=== PATIENT | female | born 1995 | race Caucasian/White ===

== ENCOUNTER 2017-08-03 01:20 | Observation (INO) | payer MEDICAID ==
[~2017-08-03] VITALS: Ht 162.6 cm; Wt 102.5 kg
[2017-08-03 02:08] VITALS: BP 121/69
[2017-08-03] MEDS ORDERED: ONDA4 PO (02:14)
[2017-08-03] MEDS ORDERED: ASPI81TA39 PO (02:14)
[2017-08-03] MEDS ORDERED: RINGERS SOLUTION,LACTATED 1,000 ML IV SCH (03:15)
== END 2017-08-03 06:40 | disposition home or self-care (01) ==
LOC: 4S 01:20
PROVIDERS: ADMIT Obstetrics & Gynecology; ATTEND Obstetrics & Gynecology
DX: O26.852 Spotting complicating pregnancy, second trimester (principal); O26.892 Other specified pregnancy related conditions, second trimester; R10.9 Unspecified abdominal pain; Z3A.22 22 weeks gestation of pregnancy
CPT/HCPCS: 59025; 96360; 96361; G0378; J7120